=== PATIENT | female | born 1950 | race Caucasian/White ===

== ENCOUNTER 2020-09-11 08:39 | Emergency (ER) | payer OTHER, SELFPAY ==
--- NOTE | ~2020-09-11 | XR_ITS ---
EXAMINATION: XR chest 2V EXAM DATE: 09/11/2020 09:31 INDICATION: SOB TECHNIQUE: Frontal and lateral projections of the chest obtained and reviewed. Comparison is made to prior examination from 05/08/2019. FINDINGS: Moderate chronic hyperinflation. Mild cardiomegaly. Cardiac silhouette is stable in size c ompared to prior exam. No confluent consolidation, pneumothorax or pleural effusion suspected. IMPRESSION: Cardiomegaly, pulmonary vascular congestion. Reviewed, dictated and finalized at location A. [facility]
[2020-09-11 08:50] VITALS: BP 132/54; PULSE 84; RESP 32; TEMP 36.6; O2SAT 100
--- NOTE | 2020-09-11 09:04 | ED.URI ---
HPI - URI/Sore Throat General Chief Complaint: Upper Respiratory Infection Stated Complaint: SOB Time Seen by Provider: 09/11/20 09:30 Source: patient and RN notes reviewed Mode of arrival: ambulatory Limitations: no limitations History of Present Illness HPI Narrative: Patient presents today complaining of a 3-day history of nonproductive cough, pain to the right lower lung area posteriorly, and shortness of breath with exertion. Patient denies fever, sinus issues, congestion, rhinorrhea, ear pain, body aches, sore throat. Currently rates her lung pain 9/10 and has been to her ProAir without much relief. Denies sick contacts. Patient was COVID-19 positive in July, but states she had fully recovered except her taste and smell. Patient smokes less than 1 pack/day x 40 years. History of bronchitis. MD elicited complaint: cough Related Data Home Medications Medication Instructions Recorded Confirmed albuterol sulfate [ProAir 2 inh INHALATION Q6H PRN 09/11/20 09/11/20 RespiClick] amiodarone 200 mg PO DAILY 09/11/20 09/11/20 atorvastatin 20 mg PO DAILY 09/11/20 09/11/20 meloxicam 15 mg PO DAILY 09/11/20 09/11/20 methocarbamol 500 mg PO QID 09/11/20 09/11/20 metoprolol tartrate 50 mg PO Q12H 09/11/20 09/11/20 rivaroxaban [Xarelto] 20 mg PO DAILY 09/11/20 09/11/20 Allergies Allergy/AdvReac Type Severity Reaction Status Date / Time hydromorphone AdvReac Mild hallucinati Verified 09/11/20 08:50 on Review of Systems Review of Systems: Narrative: CONSTITUTIONAL: Denies body aches, fever, chills, or sweats. EYES: Denies visual changes, redness, or discharge. ENT: Denies rhinorrhea, congestion, sore throat, or otalgia. CARDIOVASCULAR: Denies chest pain, palpitations, or edema. RESPIRATORY: + Cough, shortness of breath, right lower lung pain GASTROINTESTINAL: Denies abdominal pain, nausea, vomiting, or diarrhea. GENITOURINARY: Denies dysuria or hematuria. SKIN: Denies rash, itching, or wounds. MUSCULOSKELETAL: Denies back pain, joint pain, or myalgia. NEUROLOGIC: Denies headache, numbness, tingling, or weakness. PSYCH: Denies depression or anxiety. [facility] Past Medical History Medical History (Updated 09/11/20 @ 09:48 by Tammie Denny, HILDA, ) Asthma Atrial fibrillation Coronary artery disease CVA (cerebral vascular accident) GERD (gastroesophageal reflux disease) Heart attack History of bronchitis History of shingles Hypercholesterolemia Postmenopausal Surgical History Surgical History (Updated 09/11/20 @ 09:06 by Tammie Denny, HILDA, ) History of cardiac catheterization History of cholecystectomy Hx of tonsillectomy Comments At time of signature, I have reviewed and agree with nursing past medical, surgical, social and family history unless otherwise noted. Please see nursing chart for further information. There is no relevant family history pertinent to the presenting complaint Exam Narrative: Exam Narrative: GENERAL: Medically ill-appearing, well-nourished, and in no acute distress. HEAD: Normocephalic, atraumatic. EYES: EOMI. No redness or drainage. Conjunctivae normal. ENT: Mucous membranes pink and moist. Nares clear. No rhinorrhea. TMs normal bilaterally. Throat normal. Uvula midline. NECK: Normal AROM. Supple. No lymphadenopathy. CHEST: Tachypnea, mildly labored. Decreased aeration throughout. Slight end expiratory wheezing throughout. HEART: Regular rate and rhythm. No murmur appreciated. Normal peripheral pulses. EXTREMITIES: Normal range of motion. No edema. SKIN: Warm, dry, no rash. Capillary refill normal. Normal skin turgor. NEURO: No focal deficits. Alert and oriented x3. Gait steady. PSYCH: Normal affect. No signs of depression or anxiety. Course Vital Signs Vital signs: Vital Signs Temperature 97.8 F 09/11/20 08:50 Pulse Rate 84 09/11/20 08:50 Respiratory Rate 32 H 09/11/20 08:50 Blood Pressure 132/54 L 09/11/20 08:50 Pulse Oximetry 100
== END 2020-09-11 09:55 | disposition home or self-care (01) ==
PROVIDERS: Emergency Provider Nurse Practitioner; PCP Family Medicine
DX: J45.901 Unspecified asthma with (acute) exacerbation (principal); I48.91 Unspecified atrial fibrillation; I25.10 Atherosclerotic heart disease of native coronary artery without angina pectoris; Z86.73 Personal history of transient ischemic attack (TIA), and cerebral infarction without residual deficits; K21.9 Gastro-esophageal reflux disease without esophagitis; I25.2 Old myocardial infarction; E78.00 Pure hypercholesterolemia, unspecified; Z79.01 Long term (current) use of anticoagulants; F17.200 Nicotine dependence, unspecified, uncomplicated; Z86.16 Personal history of COVID-19
CPT/HCPCS: 71046; 99213; G0463